=== PATIENT | female | born 1955 | race Caucasian/White ===

== ENCOUNTER 2018-06-10 12:16 | Observation (INO) | payer BC ==
[2018-06-10] MEDS ORDERED: Sodium Chloride 0.9% 1,000 ML IV STA (12:32)
[2018-06-10 12:50] LABS: BASO # 0.06 K/mm3 (0.0-2.0); BASO % 0.5 % (0.0-3.0); EOS # 0.4 (0.0-0.7); EOS % 3.4 % (1.5-5.0); GRAN # 5.04 (1.4-6.5); GRAN % 43.7 % (50.0-68.0); LYMPH # 5.6 (1.2-3.4); LYMPH % 48.1 % (22.0-35.0); MEAN CELL VOLUME 84.6 fl (80.0-105.0); MEAN CORPUSCULAR HGB CONC 35.4 g/dl (31.0-37.0); MEAN PLATELET VOLUME 10.8 fl (7.0-11.0); MONO # 0.5 (0.1-0.6); MONO % 4.3 % (1.0-6.0); RBC 4.67 10^6/uL (3.5-6.1); RED CELL DISTRIBUTION WIDTH 12.4 % (11.5-14.5); WHITE BLOOD COUNT 11.6 10^3/ul (4.5-11.0)
[2018-06-10 13:00] LABS: INR 0.96; PROTHROMBIN TIME 10.9 SECONDS (9.4-12.5)
[2018-06-10 13:02] LABS: ALB/GLOB RATIO 1.5 (1.1-1.8); ALBUMIN 4.5 g/dL (3.0-4.8); ALT/SGPT 28 U/L (7-56); AST/SGOT 24 U/L (14-36); BLOOD UREA NITROGEN 15 mg/dL (7-21); CALCIUM 9.7 mg/dL (8.4-10.5); GFR NON-AFRICAN AMERICAN > 60
[2018-06-10 13:12] LABS: TROPONIN I < 0.01 ng/mL
--- NOTE | 2018-06-10 13:23 | CT ---
Date of service: 06/10/2018 PROCEDURE: CT HEAD WITHOUT CONTRAST. HISTORY: dizziness COMPARISON: None available. TECHNIQUE: Axial computed tomography images were obtained through the head/brain without intravenous contrast. Radiation dose: Total exam DLP = 343.18 mGy-cm. This CT exam was performed using one or more of the following dose reduction techniques: Automated exposure control, adjustment of the mA and/or kV according to patient size, and/or use of iterative reconstruction technique. FINDINGS: HEMORRHAGE: No intracranial hemorrhage. BRAIN: Normal haynes-white matter differentiation and density are appreciated throughout the cerebrum and cerebellum with the brainstem appearing unremarkable as well. There is no mass effect. There is no suspicious extra-axial fluid collection and the midline brain anatomy appears diffusely unremarkable. VENTRICLES: Unremarkable. No hydrocephalus. CALVARIUM: Unremarkable. PARANASAL SINUSES: Unremarkable as visualized. No significant inflammatory changes. MASTOID AIR CELLS: Unremarkable as visualized. No inflammatory changes. OTHER FINDINGS: None. IMPRESSION: Unremarkable noncontrast CT of the Head.
--- NOTE | 2018-06-10 13:36 | RAD ---
Date of service: 06/10/2018 PROCEDURE: CHEST RADIOGRAPH, 1 VIEW HISTORY: Dizziness COMPARISON: None available. FINDINGS: LUNGS: The lungs are well inflated and clear. PLEURA: No pneumothorax or pleural fluid seen. CARDIOVASCULAR: Normal. OSSEOUS STRUCTURES: No significant abnormalities. VISUALIZED UPPER ABDOMEN: Normal. OTHER FINDINGS: None. IMPRESSION: No active pulmonary disease.
--- NOTE | 2018-06-10 13:54 | ED PDOC ---
Arrival/HPI - General Chief Complaint: Dizziness/Lightheaded Time Seen by Provider: 06/10/18 12:28 Historian: Patient, Family (who translated) - History of Present Illness Narrative History of Present Illness (Text): 06/10/18 12:30 62 year female, with no significant past medical history, accompanied by sister and niece who translated, presents to the emergency department complaining of sudden onset of dizziness associated with nausea and vomiting one hour prior to arrival. Patient reports it occurred as she was standing up. She states symptoms worsen when she turns her head and when she sits or stands up. Patient denies any fever, chills, chest pain, palpitations, shortness of breath, diarrhea, urinary symptoms, back pain, neck pain, headache, numbness or weakness to arms or legs, or any other complaints. Patient states she had similar episode of dizziness yesterday morning which resolved spontaneously. She denies any recent URI symptoms. Denies any fevers or headaches. Denies any numbness or weakness. Denies bowel or bladder incontinence. Denies any neck or back pain. 06/10/18 18:13 Time/Duration: Prior to Arrival (1 hour) Symptom Onset: Sudden Activities at Onset: Light Context: Standing Past Medical History - Provider Review Nursing Documentation Reviewed: Yes - Reproductive Menopause: Yes - Cardiac Hx Hypertension: Yes - Psychiatric Hx Substance Use: No - Surgical History Other/Comment: Left knee. Right shoulder Family/Social History - Physician Review Nursing Documentation Reviewed: Yes Family/Social History: No Known Family HX Smoking Status: Never Smoked Hx Alcohol Use: No Hx Substance Use: No Allergies/Home Meds Allergies/Adverse Reactions: Allergies No Known Allergies Allergy (Verified 06/10/18 12:18) Home Medications: Home Meds Medication Instructions Recorded Confirmed Atenolol [Tenormin] 25 mg PO DAILY 06/10/18 06/10/18 Review of Systems - Review of Systems Constitutional: absent: Fevers, Other (Chills) ENT: absent: Sore Throat Respiratory: absent: SOB Cardiovascular: absent: Chest Pain, Palpitations Gastrointestinal: Nausea, Vomiting. absent: Abdominal Pain, Diarrhea, Hematochezia Genitourinary Female: absent: Dysuria, Frequency, Hematuria Musculoskeletal: absent: Back Pain, Neck Pain Neurological: Dizziness. absent: Headache, Focal Weakness, Other (Numbness or weakness to arms or legs) Endocrine: absent: Polyuria Hemo/Lymphatic: absent: Easy Bleeding Psychiatric: absent: Depression Physical Exam - Physical Exam Narrative Physical Exam (Text): Head: Atraumatic. Normocephalic. Eyes: PERRL. EOMI. Conjunctivae are not pale. Nystagmus noted when turning head. Visual acuity and kaiser intact. ENT: Mucous membranes are moist and intact. Oropharynx is clear and symmetric. No facial droop. TMS are clear with no edema or erythema. No ear canal edema. No facial bony tenderness. Neck: Supple. Limited ROM as patient gets very dizzy with rotation. No soft tissue swelling. No JVD. No lymphadenopathy. No meningeal signs. No auscultated bruits. Cardiovascular: Regular rate. Regular rhythm. No murmurs, rubs, or gallops. Distal pulses are 2+ and symmetric. Pulmonary/Chest: No evidence of respiratory distress. Clear to auscultation bilaterally. No wheezing, rales or rhonchi. Abdominal: Soft and non-distended. There is no tenderness. No rebound, guarding, or rigidity. No organomegaly. Good bowel sounds. Back: No CVA tenderness. Extremities: No edema. No cyanosis. No clubbing. Full range of motion in all extremities. No calf tenderness. Skin: Skin is warm and dry. No petechiae. No purpura. Neurological: Alert, awake, and oriented to person, place, time, and situation. Normal speech. No facial droop. No pronator drift. No focal weakness noted to upper or lower extremity. Patient with normal finger to nose. Normal rapid alternating movements. Patient with sensation of "spinning" when turning head or sitting up which fatigues when sitting still. Psychiatric: Good eye contact. Normal interaction, affect, and behavior. Vital Signs Reviewed: Yes Vital Signs Temp Pulse Resp BP Pulse Ox 06/10/18 16:37 64 18 155/89 H 98 06/10/18 14:15 62 18 165/75 H 98 06/10/18 12:46 97.9 F 88 18 156/79 H 98 06/10/18 12:25 97.6 F 68 18 156/95 H 100 Temperature: Afebrile Blood Pressure: Hypertensive Pulse: Regular Respiratory Rate: Normal Appearance: Positive for: Ill-Appearing, Uncomfortable Pain Distress: Moderate Mental Status: Positive for: Alert and Oriented X 3 Finger Stick Blood Glucose: 125 Medical Decision Making ED Course and Treatment: 06/10/18 13:58 Impression: 62 year old female presents complaining of sudden onset of dizziness associated with nausea and vomiting one hour prior to arrival. Plan: -- CT Head w/o Contrast -- EKG -- Labs -- Chest X-ray -- Antivert, IV Fluids, Zofran Inj -- Fingerstick -- Reassess and disposition Progress Notes: Patient's history is supplemented by niece initially then daughter who translate for patient. She has no headache, no fever, no neck pain, no chest pain or shortness of breath. Symptoms worse with movements, improved when staying still. She has no facial droop or slurred speech, no focal weakness. No pronator drift. No neck or back pain with serial exams. Abdomen is soft and nontender and nausea is preciptated by dizziness PROCEDURE: CHEST RADIOGRAPH, 1 VIEW Dictator : Majo Balderas MD Report Date : 06/10/2018 13:35:43 IMPRESSION: No active pulmonary disease. PROCEDURE: CT HEAD WITHOUT CONTRAST. Dictator : Peterson Finn MD Report Date : 06/10/2018 13:21:51 IMPRESSION: Unremarkable noncontrast CT of the Head. After iv zofran and meclizine, patient with improvement in her symptoms, however there was acute reoccurrence on re-evaluation. Additional iv zofran ordered and re-exam reveals positional dizziness, no headache, no meningeal signs. Due to intractable symptoms and limitations of ct study, reviewed treatment plan with patient and family, will admit for serial neuro exams, neurology consultation for intractable symptoms. Case discussed with Dr. Veras, covering for PMD, requests Dr. Celia Kyle for neurology. Dr. Kyle has evaluated patient in ED. 06/10/18 18:19 - Lab Interpretations Lab Results: 06/10/18 12:25 06/10/18 12:25 Lab Results 06/10/18 12:32: POC Glucose (mg/dL) 125 H 06/10/18 12:25: Sodium 143, Potassium 4.0, Chloride 108 H, Carbon Dioxide 22, Anion Gap 18, BUN 15, Creatinine 0.9, Est GFR ( Amer) > 60, Est GFR (Non- Af Amer) > 60, Random Glucose 143 H, Calcium 9.7, Total Bilirubin 0.4, AST 24, ALT 28, Alkaline Phosphatase 83, Lactate Dehydrogenase 489, Total Creatine Kinase 76, Troponin I < 0.01, Total Protein 7.3, Albumin 4.5, Globulin 2.9, Albumin/Globulin Ratio 1.5 06/10/18 12:25: PT 10.9, INR 0.96, APTT 28.0 06/10/18 12:25: WBC 11.6 H, RBC 4.67, Hgb 14.0, Hct 39.5, MCV 84.6, MCH 30.0, MCHC 35.4, RDW 12.4, Plt Count 253, MPV 10.8, Gran % 43.7 L, Lymph % (Auto) 48.1 H, Mcminn % (Auto) 4.3, Eos % (Auto) 3.4, Baso % (Auto) 0.5, Gran # 5.04, Lymph # (Auto) 5.6 H, Mcminn # (Auto) 0.5, Eos # (Auto) 0.4, Baso # (Auto) 0.06 I have reviewed the lab results: Yes - RAD Interpretation Radiology Orders: 06/10/18 12:31 HEAD W/O CONTRAST [CT] Stat 06/10/18 12:32 CHEST ONE VIEW [RAD] Stat - EKG Interpretation EKG Interpretation (Text): EKG at 1245 normal sinus rhythm with incomplete right bundle branch block Interpreted by ED Physician: Yes Type: 12 lead EKG - Medication Orders Current Medication Orders: Discontinued Medications Dexamethasone (Decadron Inj) 4 mg IVP STAT STA Stop: 06/10/18 16:45 Last Admin: 06/10/18 16:57 Dose: 4 mg IVP Administration Document 06/10/18 16:57 [facility] (Rec: 06/10/18 16:58 [id number]) Charges for Administration # of IVP Administrations 1 Diazepam (Valium) 5 mg PO ONCE ONE PRN Reason: Protocol Stop: 06/10/18 16:25 Last Admin: 06/10/18 16:49 Dose: 5 mg Sodium Chloride (Sodium Chloride 0.9%) 1,000 mls @ 1,000 mls/hr IV .Q1H STA Stop: 06/10/18 13:31 Last Admin: 06/10/18 12:44 Dose: 1,000 mls/hr eMAR Start Stop Document 06/10/18 12:44 EAR (Rec: 06/10/18 12:45 EAR [id number]) Intravenous Solution Start Date 06/10/18 Start Time 12:44 End Date 06/10/18 End time 13:45 Total Infusion Time 61 Meclizine HCl (Antivert) 25 mg PO ONCE ONE Stop: 06/10/18 12:33 Last Admin: 06/10/18 13:28 Dose: 25 mg Ondansetron HCl (Zofran Inj) 4 mg IVP ONCE ONE Stop: 06/10/18 12:33 Last Admin: 06/10/18 12:44 Dose: 4 mg IVP Administration Document 06/10/18 12:44 EAR (Rec: 06/10/18 12:44 EAR [id number]) Charges for Administration # of IVP Administrations 1 Ondansetron HCl (Zofran Inj) 4 mg IVP ONCE ONE Stop: 06/10/18 15:26 Last Admin: 06/10/18 15:34 Dose: 4 mg IVP Administration Document 06/10/18 15:34 GMD (Rec: 06/10/18 15:34 GMD [id number]) Charges for Administration # of IVP Administrations 1 - Scribe Statement The provider has reviewed the documentation as recorded by the Drew Lopez Provider Scribe Attestation: All medical record entries made by the dKibansley were at my direction and personally dictated by me. I have reviewed the chart and agree that the record accurately reflects my personal performance of the history, physical exam, medical decision making, and the department course for this patient. I have also personally directed, reviewed, and agree with the discharge instructions and disposition. Disposition/Present on Arrival - Present on Arrival Any Indicators Present on Arrival: No History of DVT/PE: No History of Uncontrolled Diabetes: No Urinary Catheter: No History of Decub. Ulcer: No History Surgical Site Infection Following: None - Disposition Have Diagnosis and Disposition been Completed?: Yes Diagnosis: Dizziness, Nausea, Vertigo Disposition: HOSPITALIZED Disposition Time: 16:35 Patient Plan: Admission, Telemetry Patient Problems: Current Active Problems Problem Status Onset Dizziness Acute Nausea Acute Vertigo Acute Condition: FAIR
[2018-06-10] MEDS ORDERED: Dexamethasone 4 mg/1 ml IVP STA (16:44)
--- NOTE | 2018-06-10 17:37 | CARD ---
APPROVED REPORT Date of service: 06/10/2018 EKG Measurement Heart [id number] <Conclusion> Normal sinus rhythm Incomplete right bundle branch block Cannot rule out Anterior infarct, age undetermined Abnormal ECG
--- NOTE | 2018-06-10 17:57 | CON ---
Copied To: Geo Kyle MD Attending MD: Geo Kyle MD DATE: 06/10/2018 NEUROLOGY CONSULT CHIEF COMPLAINT: Dizziness. HISTORY OF PRESENT ILLNESS: This is a 62-year-old man with history of hypertension, who presented to the hospital with the sister and niece who translates that he had sudden onset of dizziness in terms of spinning sensation of the room especially when he turned his head to a right and left direction, when he sits or stands up. He has associated nausea and vomiting. No blurry vision. No focal weakness of the extremities. CAT scan of the head showed no acute intracranial abnormality. He had mildly elevated diastolic blood pressure of 95. His total blood pressure is 156/95. Otherwise, no focal weakness. MEDICATIONS: Reviewed by nurses' reconciliation sheet. PAST MEDICAL HISTORY: As above. SOCIAL HISTORY: No illicit drug use, smoking or EtOH abuse at this time. REVIEW OF SYSTEMS: Fourteen-point review of systems is negative except as per the HPI. FAMILY HISTORY: Noncontributory. LABORATORY DATA: Sodium is 143, potassium 4, chloride 108, carbon dioxide 22, BUN of 15, creatinine 0.9, random glucose of 143. PHYSICAL EXAMINATION: GENERAL: The patient is sitting up in bed, in no acute distress. HEENT: Atraumatic, normocephalic. PERRLA. Extraocular muscles intact. NECK: Supple. No JVD, no adenopathy noted. LUNGS: Clear to auscultation. No adventitious sounds. HEART: S1, S2. Normal rate and rhythm. No murmurs, rubs or gallops. ABDOMEN: Soft, nontender and nondistended. Bowel sounds are present. EXTREMITIES: No clubbing. No cyanosis. Peripheral pulses 2+ felt bilaterally. NEUROLOGIC: The patient is alert and oriented to person, place, month and year. Speech is fluent without any errors. Cranial nerves II through XII intact. Motor exam: Moves all extremities equally. Toes are downgoing bilaterally. Sensory exam: Light touch, pinprick, proprioception and vibration are intact. DTRs are 2+ throughout. Coordination: [id number] intact. No dysmetria noted. Gait is deferred for now. ASSESSMENT AND PLAN: This is a 62-year-old man with history of hypertension, who presents with sudden onset of dizziness in terms of spinning sensation of room when getting up from a sitting to a standing position as well as turns the head in the right and left directions associated with nausea and vomiting with occasional diffuse pressure headache, likely secondary to underlying vestibular neuritis/benign positional vertigo. At this time, I will recommend, 1. Start one dose of dexamethasone 4 mg IV push to decrease the neuritis. 2. Meclizine 25 mg p.o. t.i.d. 3. Will need outpatient vestibular therapy. 4. MRI of the brain without contrast to assess for any structural abnormalities causing vertigo . Thank you for this consult. Geo Kyle MD
[2018-06-10 18:17] VITALS: BMI 29.5
--- NOTE | 2018-06-10 19:33 | HP ---
Copied To: Akil Veras MD Attending MD: Akil Veras MD HISTORY OF PRESENT ILLNESS: The patient is 62 years old who came to emergency room with feeling of extremely dizzy as if she is going to fall and pass out, associated with nausea and vomiting. Meds started this morning. It is more positional when she bends to pickup something, she feels extremely dizzy. There is no history of nausea or vomiting, no diarrhea, no history of hemoptysis, no hematemesis, no history of fever or chills, no history of head trauma. According to sister and niece who were at the bedside it all started this morning. No history of blurry vision, no focal weakness or numbness. PAST MEDICAL HISTORY: Significant for hypertension and palpitation. ALLERGIES: SHE IS NOT ALLERGIC TO ANY MEDICATION. MEDICATION AT HOME: She is on atenolol 25 daily. SOCIAL HISTORY: Denies smoking, drinking alcohol use. PHYSICAL EXAMINATION: GENERAL: The patient is awake and alert, able to communicate; however, has language barrier. VITAL SIGNS: She is afebrile, pulse 63, respiration 19, blood pressure 172/99. LUNGS: Bilateral good airflow. No rhonchi or crackle. HEART: S1 and S2 audible. ABDOMEN: Soft, nontender. No rebound. No guarding. NEUROLOGICAL: The patient is awake, alert, oriented, able to communicate. EXTREMITIES: Bilateral legs, no edema. No focal deficits. LABORATORY EXAMINATION: WBC 11.6, hemoglobin 14, hematocrit 39.5, platelet of 53. PT 10.9, INR 0.96, PTT 28. Chemistry: Sodium 143, potassium 4, chloride 108, CO2 of 22, BUN 15, creatinine 0.9, blood sugar of 125. LFTs are within normal limit. She had CT scan of the head done that is unremarkable. ASSESSMENT: 1. Extreme dizziness, probably vertigo. 2. Uncontrolled hypertension. PLAN: The patient will be admitted. We will give her Zofran as needed. I will give her a dose of Norvasc. We will follow up her lipid profile. We will start her on meclizine. We will follow up and monitor her blood pressure closely. We will reevaluate . Akil Veras MD [facility] # [id number]
[2018-06-11 00:17] VITALS: RESP 20
[2018-06-11 07:54] VITALS: BP 147/89; PULSE 89; TEMP 98.3; O2SAT 98
--- NOTE | 2018-06-11 12:16 | PN ---
Copied To: Geo Kyle MD Attending MD: Geo Kyle MD DATE: 06/11/2018 NEUROLOGY FOLLOWUP CHIEF COMPLAINT: Followup for dizziness. SUBJECTIVE: The patient is seen and examined at bedside. She is feeling much better now. No longer dizzy. Did feel better after getting dexamethasone and Zofran. CAT scan of the head showed no acute intracranial abnormality. MRI of the brain is currently pending. She moves all extremities without any difficulty. Blood pressure is much better controlled. MEDICATIONS: Reviewed by nurse's reconciliation sheet. PAST MEDICAL HISTORY: Hypertension. REVIEW OF SYSTEMS: Fourteen-point review of systems is negative except as per the HPI. FAMILY HISTORY: Noncontributory. SOCIAL HISTORY: No illicit drug use, smoking, or EtOH abuse. CURRENT LABORATORY DATA: No new labs from today. PHYSICAL EXAMINATION: VITAL SIGNS: Temperature 98.3, pulse rate of 89, blood pressure 147/89, respiratory rate 20, oxygen saturation 98% on room air. GENERAL: The patient is sitting up in bed, in no acute distress. HEENT: Head is atraumatic, normocephalic. PERRLA. Extraocular muscles intact. NECK: Supple. No JVD. No adenopathy noted. LUNGS: Clear to auscultation. No adventitious sounds. HEART: S1 and S2. Normal rate and rhythm. No murmurs, rubs, or gallops. ABDOMEN: Soft, nontender, and nondistended. Bowel sounds are present. EXTREMITIES: No clubbing. No cyanosis. Peripheral pulses 2+ felt bilaterally. NEUROLOGIC: The patient is alert and oriented to person, place, month, and year. Speech is fluent without any errors. Cranial nerves II through XII intact. Motor: Moves all extremities equally. Toes are downgoing bilaterally. Sensory: Light touch, pinprick, proprioception, and vibration are intact. DTRs are 2+ throughout. Coordination: Ggjyar-ow-nyeg intact. No dysmetria noted. Gait is deferred for now. IMPRESSION AND PLAN: A 62-year-old woman with history of hypertension, who presented with sudden onset of dizziness in terms of spinning sensation of the room while getting up from a sitting to a standing position as well as turning her head in the right or left direction with associated nausea and vomiting and which was likely secondary to vestibular neuritis/benign positional vertigo. She will receive 4 mg of IV dexamethasone and Zofran in the ER, now she is feeling much better. No longer dizzy. RECOMMENDTIONS: At this time, we will recommend: 1. Meclizine 25 mg p.o. t.i.d. 2. Outpatient vestibular therapy for dizziness. 3. If MRI of the brain is normal, she can go home. Geo Kyle MD
--- NOTE | 2018-06-11 13:23 | MRI ---
Date of service: 06/11/2018 PROCEDURE: MRI BRAIN WITHOUT CONTRAST HISTORY: Vertigo COMPARISON: Noncontrast head CT from 06/10/2018 TECHNIQUE: Multiplanar, multisequence MR images of the brain were obtained without intravenous contrast enhancement. FINDINGS: HEMORRHAGE: None DWI: No evidence of an acute or early subacute infarction. BRAIN PARENCHYMA: There are mild chronic microangiopathic changes. There is no mass, mass effect or abnormal extra-axial fluid collection. There is no territorial infarction. There is a partially empty sella, otherwise the midline sagittal structures are normal. VENTRICLES: The ventricles are normal in size, shape and configuration. CRANIUM: There is normal bone marrow signal pattern. ORBITS: Grossly unremarkable. PARANASAL SINUSES/MASTOIDS: Predominantly clear. VASCULAR SYSTEM: There are normal signal voids in the larger intracranial arteries. OTHER FINDINGS: None. IMPRESSION: No acute intracranial abnormality. Mild chronic microangiopathic changes.
--- NOTE | 2018-06-12 01:38 | DS ---
Copied To: Akil Veras MD Attending MD: Akil Veras MD HISTORY OF PRESENT ILLNESS: The patient is a 62-year-old, came in with extreme dizziness, vertigo, especially moving her head, was given dose of steroid and was given meclizine, did well, wants to go home. PHYSICAL EXAMINATION: GENERAL: She is awake, alert, oriented, communicative. VITAL SIGNS: She is afebrile, pulse 89, respiration 20, blood pressure 147/89. LUNGS: Bilateral good airflow. No rhonchi or crackle. HEART: S1 and S2 audible. ABDOMEN: Soft, nontender. No rebound, no guarding. NEUROLOGIC: She is awake, alert, oriented, communicative, nonfocal, ambulatory. LABORATORY DATA: CT scan is unremarkable. Awaiting MRI. ASSESSMENT: 1. Extreme dizziness secondary to vertigo. 2. History of hypertension. 3. History of left total knee replacement. PLAN: The patient will be discharged today after she has MRI done and she will follow up with her PMD, Dr. Rachel as outpatient. Akil Veras MD
== END 2018-06-11 15:43 | disposition home or self-care (01) ==
LOC: ED 12:16 → ERH 16:25 → 3RNO 17:08
PROVIDERS: ADMIT Internal Medicine; ATTEND Internal Medicine
DX: H81.10 Benign paroxysmal vertigo, unspecified ear (principal); H93.3X9 Disorders of unspecified acoustic nerve; I10 Essential (primary) hypertension; Z96.652 Presence of left artificial knee joint
CPT/HCPCS: 70450; 70551; 71045; 80053; 82550; 82948; 83615; 84484; 85025; 85610; 85730; 93005; 96361; 96374; 96375; 96376; 99285; G0378; J1100; J2405; J7030